=== PATIENT | female | born 1975 | race African-American/Black ===

== ENCOUNTER 2018-05-17 15:49 | Emergency (ER) | payer OTHER ==
[2018-05-17 16:44] LABS: #Basophils 0.1 thou/uL (0.0-0.2); #Monocytes 0.3 thou/uL (0.11-0.59); %Basophils 2.1 % (0.0-1.0); %Eosinophils 0.2 % (0.0-10.0); %Lymphocytes 22.4 % (21.0-51.0); %Monocytes 6.5 % (0.0-10.0); %Neutrophils 68.8 % (42.0-75.0); Hemoglobin 13.9 g/dL (12.0-16.0); Mean Corpuscular HGB CONC 33.8 g/dL (32.0-36.0); Mean Corpuscular Hemoglobin 29.9 pg (27.0-31.0); Mean Corpuscular Volume 88.4 fL (78.0-98.0); Mean Platelet Volume 9.1 fL (7.4-10.4); Platelet Count 155 thou/uL (130-400); Red Blood Cell (RBC) Count 4.65 mill/uL (4.20-5.40); White Blood Cell (WBC) Count 4.4 thou/uL (4.8-10.8)
--- NOTE | 2018-05-17 16:51 | RAD ---
CHEST 1 VIEW PORTABLE: Date: 05/17/18 HISTORY: 42-year-old female with history of chest pain. FINDINGS: Monitor leads overlie the chest. Heart size is within normal limits. The lungs are clear. IMPRESSION: No acute intrathoracic disease. Stable from prior study. POS: [facility]
[2018-05-17 17:48] LABS: ALT (SGPT) 7 U/L (8-55); AST (SGOT) 17 U/L (5-34); Alkaline Phosphatase 64 U/L (40-150); Anion Gap 17 mmol/L (10-20); BUN (Urea Nitrogen) 7 mg/dL (7.0-18.7); Bilirubin, Total 0.5 mg/dL (0.2-1.2); CK (CPK) 82 U/L (29-168); Calc. Creatinine Clearance 0 mL/min (70-130); Calcium 9.4 mg/dL (7.8-10.44); Carbon Dioxide 19 mmol/L (22-29); Chloride 98 mmol/L (98-107); Estimated GFR-MDRD Greater than 90; Globulin 4.6 g/dL (2.4-3.5); Glucose 96 mg/dL (70-105); Potassium 3.3 mmol/L (3.5-5.1); Protein, Total 8.6 g/dL (6.0-8.3); Sodium 131 mmol/L (136-145)
[2018-05-17] MEDS ORDERED: Potassium Chloride 20 MEQ TAB ONE (18:45)
[2018-05-17] MEDS ORDERED: diphenhydrAMINE 25 MG CAP ONE (19:04)
--- NOTE | 2018-05-19 12:28 | EKG ---
Test Reason : Blood Pressure : / mmHG Vent. Rate : 087 BPM Atrial Rate : 087 BPM P-R Int : 130 ms QRS Dur : 098 ms QT Int : 392 ms P-R-T Axes : 071 007 033 degrees QTc Int : 471 ms Normal sinus rhythm Incomplete right bundle branch block Borderline ECG Confirmed by CRISTIAN COLLINS MD ([id number]), greeting card editor ARGENTINA GARCIA ([id number] on 05/19/2018 12:28:35 PM Referred By: Confirmed By:CRISTIAN COLLINS MD
== END 2018-05-17 21:40 | disposition home or self-care (01) ==
LOC: ERS 15:49
DX: R07.9 Chest pain, unspecified (principal); R53.82 Chronic fatigue, unspecified; F41.9 Anxiety disorder, unspecified; F32.9 Major depressive disorder, single episode, unspecified; Z79.899 Other long term (current) drug therapy
CPT/HCPCS: 71045; 80053; 82550; 84484; 85025; 93005